=== PATIENT | male | born 1995 | race Caucasian/White ===

== ENCOUNTER 2022-08-10 16:12 | Emergency (ER) | payer OTHER ==
[~2022-08-10] VITALS: Ht 177.8 cm; Wt 76.5 kg
[2022-08-10 16:49] LABS: BASO % 0.5 % (0.0-1.0); EOS # 0.1 10^3/uL (0.0-0.5); EOS % 1.4 % (0.0-3.0); HEMATOCRIT 43.5 % (42.0-52.0); HEMOGLOBIN 14.6 g/dl (13.5-17.5); LYMPH # 2.7 10^3/uL (1.5-5.0); LYMPH % 35.6 % (24.0-44.0); MEAN CORPUSCULAR HEMOGLOBIN 26.9 pg (27.0-33.0); MEAN CORPUSCULAR HGB CONC 33.6 g/dl (32.0-36.5); MEAN CORPUSCULAR VOLUME 80.1 fl (80.0-96.0); MONO # 0.5 10^3/uL (0.0-0.8); MONO % 6.2 % (2.0-8.0); NEUTROPHILS # 4.3 10^3/uL (1.5-8.5); NEUTROPHILS % 56.2 % (36.0-66.0); PLATELET COUNT, AUTOMATED 257 10^3/uL (150-450); RED BLOOD COUNT 5.43 10^6/uL (4.30-6.10); WHITE BLOOD COUNT 7.7 10^3/uL (4.0-10.0)
[2022-08-10] MEDS ORDERED: levETIRAcetam INJection 1,500 MG in D5W 100 ML IV ONE (17:10)
[2022-08-10 17:18] LABS: ETHYL ALCOHOL (ETHANOL) < 0.003 % (0.000-0.010)
[2022-08-10 17:19] LABS: ACETAMINOPHEN LEVEL < 2.0 UG/ML (10.0-20.0); CPK CREATINE PHOSPHOKINASE 47 U/L (46-171); SALICYLATE LEVEL < 3.0 MG/DL (<30)
[2022-08-10 17:20] LABS: ALBUMIN 4.2 G/DL (3.2-5.2); ALKALINE PHOSPHATASE 82 U/L (46-116); ALT/SGPT 18 U/L (7.0-40); AST/SGOT 9 U/L (<34); BILIRUBIN,DIRECT 0.2 MG/DL (<0.4); BILIRUBIN,TOTAL 0.6 MG/DL (0.3-1.2); BLOOD UREA NITROGEN 12 MG/DL (9-23); CALCIUM LEVEL 9.6 MG/DL (8.5-10.1); CARBON DIOXIDE LEVEL 22 MMOL/L (20-31); CHLORIDE LEVEL 107 MMOL/L (98-107); CREATININE FOR GFR 0.76 MG/DL (0.70-1.30); GLOMERULAR FILTRATION RATE > 60.0 (>60); GLUCOSE, FASTING 145 MG/DL (60-100); POTASSIUM SERUM 4.3 MMOL/L (3.5-5.1); SODIUM LEVEL 140 MMOL/L (136-145); TOTAL PROTEIN 6.8 G/DL (5.7-8.2)
[2022-08-10 18:05] LABS: AMPHETAMINES LEVEL URINE NEGATIVE (NEGATIVE); BARBITURATES URINE NEGATIVE (NEGATIVE); BENZODIAZEPINES URINE NEGATIVE (NEGATIVE); COCAINE METABOLITE URINE NEGATIVE (NEGATIVE)
[2022-08-10] MEDS ORDERED: PROHANCE 279.3MG/ML 15ML VIAL As Ordered ONE (18:05)
[2022-08-10 18:06] LABS: CANNABINOIDS URINE NEGATIVE (NEGATIVE); METHADONE URINE NEGATIVE (NEGATIVE); OPIATES URINE NEGATIVE (NEGATIVE); PHENCYCLIDINE URINE NEGATIVE (NEGATIVE)
[2022-08-10] MEDS ORDERED: NS 500 ML IV ONE (19:10)
[2022-08-10 22:16] LABS: RSV AMPLIFICATION NEGATIVE (NEGATIVE)
[2022-08-10] MEDS ORDERED: KETOROLAC 30 MG/ML 1ML VIAL IV ONE (22:20)
[2022-08-10] MEDS ORDERED: dexAMETHasone 20MG/5ML VIAL IV ONE (23:00)
[2022-08-11 02:00] VITALS: BP 100/59; TEMP 96.8; O2SAT 98
== END 2022-08-11 02:04 | disposition short-term general hospital (02) ==
LOC: M ED 16:12 → EDBD 16:12 → EDSEX 16:12 → M ED 08-11 02:04
DX: R56.9 Unspecified convulsions (principal); R90.0 Intracranial space-occupying lesion found on diagnostic imaging of central nervous system; Z98.84 Bariatric surgery status; F17.290 Nicotine dependence, other tobacco product, uncomplicated
CPT/HCPCS: 70450; 70553; 80048; 80076; 80143; 80307; 82077; 82550; 85025; 87631; 93005; 93041; 96374; 96375; 99285; A9576; J1100; J1885; J1953

== ENCOUNTER 2023-07-03 03:21 | Emergency (ER) | payer OTHER ==
[~2023-07-03] VITALS: Ht 175.3 cm; Wt 78.1 kg
[2023-07-03] MEDS ORDERED: vitamin d (03:36)
[2023-07-03] MEDS ORDERED: KEPP1TAB PO (03:36)
[2023-07-03] MEDS: levETIRAcetam INJection 1,000 MG in D5W 100 ML IV ONE (03:52)
[2023-07-03] MEDS: ACETAMINOPHEN TAB 650MG DOSE (2X325MG) PO ONE (03:52)
[2023-07-03 06:28] VITALS: BP 104/64; TEMP 98.3; O2SAT 100
== END 2023-07-03 06:27 | disposition home or self-care (01) ==
LOC: M ED 03:21
DX: G40.909 Epilepsy, unspecified, not intractable, without status epilepticus (principal); Q28.3 Other malformations of cerebral vessels; Z91.148 Patient's other noncompliance with medication regimen for other reason; Z79.899 Other long term (current) drug therapy
CPT/HCPCS: 96365; 99284; J1953

== ENCOUNTER → 2024-06-16 | Outpatient (CLI) | payer OTHER ==
[~2024-06-16] MED LIST: KEPP1TAB PO; vitamin d
== END ==
LOC: M RAD 07:40
PROVIDERS: ATTEND Nurse Practitioner Family
DX: D36.9 Benign neoplasm, unspecified site (principal)